=== PATIENT | female | born 1995 | race Caucasian/White ===

== ENCOUNTER 2024-09-19 23:17 | Inpatient (IN) ==
[2024-09-19] MEDS ORDERED: OXYTOCIN 30 UNITS/NSS 30 UNITS/500 ML BAG IV PRN (23:30)
[2024-09-19] MEDS ORDERED: LIDOCAINE 1% LOCAL 20 ML VIAL INFIL PRN (23:30)
--- NOTE | 2024-09-19 23:32 | History & Physical Report ---
Date of Service September 19, 2024 Assessment & Plan (1) Post term over 40 weeks: (2) PROM (premature rupture of membranes): (3) Antibody E isoimmunization affecting , antepartum: Plan admit,iv, labs. gross srom. plan pitocin, pt agreeable. fhts categ 1. History of Present Illness Chief Complaint: leaking fluid since 10pm 09/19 Primary Care Provider: NO PCP 29yo at 40+wks ega presents with above cc. No ctx. No vb. +FM. Clear fluid leak. PNC c/b 1. 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 Elective Surgical History H/O breast biopsy right breast No pertinent past surgical history Family History Denies family history of Pancreatic cancer Ovarian cancer Prostate cancer Breast cancer Colorectal cancer Uterine cancer Social History (Updated 09/16/24 @ 16:19 by Rosa Elena Hernandez RN) Smoking Status: Never smoker Do You Dip or Chew Tobacco: No; Hx Alcohol Use: No Hx Substance Use: No Preferred Language: Nigerian Communication Ability: Effective Visual Impairment: No Limitations Beliefs That Will Affect Care: None marital status: marital status details: Archie (29) [phone] Current Living Situation: Spouse Current Living Situation Comment: lives with spouse and 1 dog current occupational status: employed current occupation: shipping [employer] Feels Safe at Home: Yes Review of Systems as per Subjective / HPI Physical Exam 2 Constitutional: WD/WN, vitals as above Respiratory: normal respiratory effort, lungs clear to auscultation Cardiovascular: Rate/Rhythm: regular rate and regular rhythm Gastrointestinal (Abdomen): soft gravid nt efw 7# Musculoskeletal: no edema nontender calves Neurologic: grossly normal Psychiatric: A+Ox3, euthymic affect Genitourinary: Manual OB Exam: + cervical dilation 3 cm, + cervical effacement 50%, + station -2 and + amniotic fluid (srom) clear OB Exam Monitor Tracing: + external FHT monitor used, + external uterine monitor used (no ctx), + category I and + normal FHT variability Coding Level of Care Code None Diagnoses Post term over 40 weeks O48.0 PROM (premature rupture of membranes) O42.90 Antibody E isoimmunization affecting , antepartum O36.0990
[2024-09-19 23:54] LABS: Hematocrit (blood only) 34.5 % (37.0-47.0); Hemoglobin 11.9 g/dl (12.0-16.0); Mean Corpuscular Hemoglobin 29.8 pg (25.0-34.0); Mean Corpuscular Hgb Conc 34.5 g/dL (32.0-36.0); Mean Corpuscular Volume 86.5 fL (80.0-100.0); Mean Platelet Volume 10.5 fL (9.4-12.4); Platelet Count 177 K/uL (130-400); RDW Coefficient of Variation 12.9 % (11.5-14.5); RDW Standard Deviation 40.5 fL (36.4-46.3); Red Blood Count 3.99 M/uL (4.20-5.40); White Blood Count 8.29 K/ul (4.8-10.8)
[2024-09-20] MEDS: SODIUM CHLORIDE 0.9% 1,000 ML IV SCH (00:20)
[2024-09-20] MEDS: OXYTOCIN 30 UNITS/NSS 30 UNITS/500 ML BAG IV PRN (00:22)
[2024-09-20] MEDS ORDERED: fentaNYL citrate PF 100 MCG/2 ML VIAL EPI PRN (03:50)
[2024-09-20] MEDS ORDERED: NALOXONE HCL 1 MG in SODIUM CHLORIDE 0.9% 1,000 ML IV PRN (03:50)
[2024-09-20] MEDS ORDERED: ePHEDrine sulfate 50 MG/ML AMP IV PRN (03:50)
[2024-09-20] MEDS ORDERED: diphenhydrAMINE 50 MG/ML VIAL IV PRN (03:50)
[2024-09-20] MEDS ORDERED: SODIUM CHLORIDE 0.9% PF INJ 10 ML VIAL EPI PRN (03:50)
[2024-09-20] MEDS ORDERED: ROPIVACAINE 0.5% PF 5 MG/ML 20 ML VIAL EPI PRN (03:50)
[2024-09-20] MEDS ORDERED: NALBUPHINE HCL INJ 10 MG/ML AMP IV PRN (03:50)
[2024-09-20] MEDS ORDERED: LIDOCAINE 2% MPF LOCAL 5 ML VIAL EPI PRN (03:50)
[2024-09-20] MEDS ORDERED: BUPIVACAINE 0.25% PF 30 ML VIAL EPI PRN (03:50)
[2024-09-20] MEDS ORDERED: NALOXONE HCL 0.4 MG/1 ML VIAL/CARP IV PRN (03:50)
--- NOTE | 2024-09-20 03:50 | Anesthesiology Consultation ---
Date of Service September 20, 2024 Assessment & Plan (1) Encounter for pre-operative examination: Chart Review Chart Review: Patient NOT seen in Pre Admission Testing and Acceptable Risk for Labor Epidural Consults Requested none History Height/Weight Height: 5 ft 5 in Weight: 79.832 kg Allergies Allergy/AdvReac Type Severity Reaction Status Date / Time Penicillins Allergy Unknown unk Verified 09/19/24 23:34 Medications Home Medications Medication Instructions Recorded Confirmed Last Taken prenat.vits,ronda,[id number] 1 tab PO DAILY 01/30/24 09/19/24 09/19/24 Active Medications Generic Name Dose Route Start Last Admin Trade Name Freq PRN Reason Stop Dose Admin Oxytocin 30 units in 500 mls @ 5 mls/hr 09/19/24 23:30 09/20/24 02:30 Pitocin 30 Units/Nss IV 09/21/24 23:29 0.3 units/hr .Q24H PRN 5 mls/hr Labor Induction/Augmentation Titration Protocol 0.3 UNITS/HR Sodium Chloride 1,000 mls @ 50 mls/hr 09/20/24 00:15 09/20/24 03:20 Nss IV 09/21/24 00:14 999 mls/hr .Q20H MILAN Infusion Past Medical History Medical History History of COVID-19 08/07/2024 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
[2024-09-20] MEDS: LIDOCAINE 2%/EPINEPHRINE 1:200,000 20 ML PF EPI STA (04:08)
[2024-09-20] MEDS: BUPIVACAINE 0.25% PF 30 ML VIAL EPI STA (04:09)
[2024-09-20] MEDS: fentaNYL citrate PF 100 MCG/2 ML VIAL EPI STA (04:09)
[2024-09-20] MEDS: fentANYL 2 MCG/ML BUPIVacaine 0.125%-NSS 100ML BAG EPI PRN (04:11)
[2024-09-20] MEDS: fentANYL 2 MCG/ML BUPIVacaine 0.125%-NSS 100ML BAG ONE (04:17)
[2024-09-20] MEDS: LIDOCAINE 2%/EPINEPHRINE 1:200,000 20 ML PF ONE (04:17)
[2024-09-20] MEDS: SODIUM CHLORIDE 0.9% PF INJ 10 ML VIAL ONE (04:17)
[2024-09-20] MEDS: BUPIVACAINE 0.25% PF 30 ML VIAL ONE (04:17)
[2024-09-20] MEDS: fentaNYL citrate PF 100 MCG/2 ML VIAL ONE (04:17)
[2024-09-20] MEDS: ePHEDrine sulfate 50 MG/ML AMP ONE (04:17)
[2024-09-20] MEDS: SODIUM CHLORIDE 0.9% PF INJ 10 ML VIAL EPI STA (04:18)
--- NOTE | 2024-09-20 07:44 | Labor Progress Brief Note ---
Date of Service September 20, 2024 Subjective feels pressure Assessment & Plan (1) Post term over 40 weeks: (2) PROM (premature rupture of membranes): Plan begin 2nd stage. fhts categ 1. Admission and Anticipated Discharge Date Admission Date: September 19, 2024 Physical Exam Constitutional: WD/WN, vitals as above Genitourinary: Manual OB Exam: + cervical dilation 10 cm, + cervical effacement 100% and + station + 2 OB Exam Monitor Tracing: + external FHT monitor used, + external uterine monitor used, + category I and + normal FHT variability Results & Data Vital Signs (Past 12 Hours) Vital Signs Temp Pulse Resp BP Pulse Ox 09/20/24 07:40 68 09/20/24 07:40 72 126/68 100 09/20/24 07:35 63 98 09/20/24 07:30 64 16 97 09/20/24 07:25 61 99 09/20/24 07:24 56 L 119/69 09/20/24 07:20 63 99 09/20/24 07:15 52 L 99 09/20/24 07:10 63 118/75 98 09/20/24 07:09 60 87 L 09/20/24 07:07 98.4 F 67 20 100 09/20/24 07:05 67 100 09/20/24 07:00 61 92 09/20/24 06:55 63 122/73 100 09/20/24 06:54 63 94 09/20/24 06:50 61 100 09/20/24 06:45 65 100 09/20/24 06:40 63 107/62 100 09/20/24 06:36 62 91 09/20/24 06:35 64 100 09/20/24 06:30 68 99 09/20/24 06:28 71 90 09/20/24 06:25 97.9 F 71 18 124/85 100 09/20/24 06:20 69 99 09/20/24 06:15 59 L 97 09/20/24 06:10 63 104/65 100 09/20/24 06:05 53 L 97 09/20/24 06:00 59 L 97 09/20/24 05:55 97 09/20/24 05:55 57 L 09/20/24 05:55 37 L 98/53 L 09/20/24 05:50 57 L 97 09/20/24 05:45 61 98 09/20/24 05:40 64 99 09/20/24 05:39 68 113/68 09/20/24 05:35 54 L 97 09/20/24 05:30 66 99 09/20/24 05:25 99 09/20/24 05:25 63 09/20/24 05:25 73 120/73 09/20/24 05:20 55 L 98 09/20/24 05:15 64 98 09/20/24 05:10 63 114/67 98 09/20/24 05:05 61 100 09/20/24 05:01 64 90 09/20/24 05:00 72 100 09/20/24 04:55 77 100 09/20/24 04:54 69 127/69 09/20/24 04:50 75 100 09/20/24 04:45 68 100 09/20/24 04:40 69 99 09/20/24 04:39 65 107/56 L 09/20/24 04:35 61 97 09/20/24 04:30 57 L 99 09/20/24 04:29 16 09/20/24 04:29 16 09/20/24 04:25 72 95 09/20/24 04:23 67 107/54 L 09/20/24 04:20 66 98 09/20/24 04:16 71 107/59 L 09/20/24 04:15 98.2 F 62 16 99 09/20/24 04:14 71 103/55 L 09/20/24 04:12 73 102/59 L 87 L 09/20/24 04:10 62 111/61 99 09/20/24 04:06 68 115/61 09/20/24 04:05 67 99 09/20/24 04:03 99 H 91 09/20/24 04:00 73 98 09/20/24 03:55 70 97 09/20/24 03:50 72 97 09/20/24 03:45 64 99 09/20/24 03:40 65 100 09/20/24 03:30 16 09/20/24 03:30 16 09/20/24 03:29 58 L 122/75 09/20/24 03:00 16 09/20/24 03:00 16 09/20/24 02:29 97.5 F L 74 16 118/73 09/20/24 01:28 59 L 107/69 09/20/24 00:39 18 09/20/24 00:39 97.7 F 18 09/20/24 00:28 72 110/72 09/19/24 23:36 98.1 F 09/19/24 23:32 69 126/84 Coding Level of Care Code None Diagnoses Post term over 40 weeks O48.0 PROM (premature rupture of membranes) O42.90
[2024-09-20] MEDS ORDERED: bisacodyL 10 MG SUPP PR PRN (08:17)
[2024-09-20] MEDS ORDERED: ACETAMINOPHEN 325 MG TAB PO PRN (08:17)
[2024-09-20] MEDS ORDERED: OXYTOCIN 30 UNITS/NSS 30 UNITS/500 ML BAG IV PRN (08:17)
[2024-09-20] MEDS ORDERED: HYDROCORTISONE ACETATE 25 MG SUPP PR PRN (08:17)
[2024-09-20] MEDS ORDERED: DIPHTHER/TETAN/PERTUS Vaccine (Tdap, Adol/Adult) 0.5mL IM ONE (08:17)
[2024-09-20] MEDS ORDERED: oxyCODONE/ACETAMINOPHEN 5mg/325mg TAB PO PRN (08:17)
--- NOTE | 2024-09-20 08:26 | Delivery Summary ---
Vaginal Delivery Summary Date of Service September 20, 2024 Vaginal Delivery Summary and 2nd Degree LAC The patient dilated to complete and pushed to deliver a viable Female Apgars 8 and 9 via over 2nd degree perineal laceration. Mouth and nose bulb suctioned at perineum. Shoulders and body delivered with ease. was vigorous and crying at . Cord clamped at 30 seconds of life and to maternal abdomen where the cord was then doubly clamped and cut. Placenta delivered spontaneously and intact, three-vessel cord. Hemostasis achieved with dilute pitocin and uterine massage. Laceration repaired in layer in usual fashion with 3-0 vicryl. Cervix and sulci intact. QBL 287 cc. Mother and baby stable in recovery. [facility] Vaginal Delivery Charge Delivery Type Details: and 2nd Degree LAC
--- NOTE | 2024-09-20 09:24 | Anesthesia Procedure Note ---
Date of Service September 20, 2024 Anesthesia Post Epidural Note Vital Signs Vital Signs: Temp Pulse Resp BP Pulse Ox 36.9 C 60 18 103/59 L 94 09/20/24 07:07 09/20/24 09:08 09/20/24 08:53 09/20/24 09:08 09/20/24 08:20 Pain Intensity Left Abdomen: Pain Intensity: 3 Notes Mental Status: alert / awake / arousable and participated in evaluation Nausea / Vomiting: adequately controlled Pain: adequately controlled Airway Patency, RR, SpO2: stable & adequate BP & HR: stable & adequate Hydration State: stable & adequate Neuraxial Anesthesia: was administered and sensory block is resolving Anesthetic Complications: no major complications apparent and Pt Satisfied with anesthetic care Epidural: Removed without complications and With tip intact
[2024-09-20] MEDS: BENZOCAINE 20% SPRY 85 APPLN/85 GM CAN EXT PRN (09:58)
[2024-09-20] MEDS: IBUPROFEN 600 MG TAB PO PRN (09:58)
[2024-09-20] MEDS: DOCUSATE SODIUM 100 MG CAP PO SCH (20:15)
[2024-09-21 06:41] LABS: Hematocrit (blood only) 32.9 % (37.0-47.0); Hemoglobin 10.9 g/dl (12.0-16.0); Mean Corpuscular Hemoglobin 29.1 pg (25.0-34.0); Mean Corpuscular Hgb Conc 33.1 g/dL (32.0-36.0); Mean Platelet Volume 10.7 fL (9.4-12.4); Platelet Count 183 K/uL (130-400); RDW Standard Deviation 41.4 fL (36.4-46.3); Red Blood Count 3.74 M/uL (4.20-5.40); White Blood Count 10.61 K/ul (4.8-10.8)
--- NOTE | 2024-09-21 08:09 | Obstetrical Progress Note ---
Date of Service September 21, 2024 Assessment & Plan (1) Normal spontaneous vaginal delivery: Plan Both mom and baby doing well. Discharge today if they feel ready to go home. Admission and Anticipated Discharge Date Admission Date: September 19, 2024 Supervising Physician Co-Signing Physician Notes Patient seen with resident and agree with the above findings and plan. Stable for discharge at 24 hours if preferred Subjective #1PPD following at 40 WGA No active complains Both mom and baby doing well. Pain: Mild, intermittent Lochia: Moderate Diet: Regular Ob diet Gas: Aware of passing, no abdominal distension Peeing: Normal, no bladder distension Ambulation: Normally Review of Systems Review of Systems: No SOB, chest pain, leg pain No dizziness, headache, palpitation No Blurring of vision , fever Physical Exam Physical Exam: General: Alert and oriented. No acute distress. CVS: S1 S2+ No murmurs, regular rhythm. Respiratory: CTA bilaterally. No rhonchi, wheezes, or crackles. No increased work of breathing. Abdomen: Bowel sound +. Soft, nontender Uterus: Fundus firm and palpable few cm below the umbilicus. Lower extremities: No LE edema. No deep calf pain. Results & Data Vital Signs (Past 12 Hours) Vital Signs Temp Pulse Resp BP Pulse Ox O2 Del Method 09/21/24 04:15 36.6 C 74 18 116/76 98 Room Air 09/20/24 23:50 36.6 C 58 L 18 116/74 97 Room Air 09/20/24 20:15 36.4 C L 67 18 115/74 96 Room Air
[2024-09-21] MEDS: PRENATAL VITAMIN 1 TAB PO SCH (08:47)
[2024-09-21] MEDS: bisacodyL 5 MG TABEC PO SCH (20:25)
[2024-09-21 21:46] VITALS: O2SAT 97
[2024-09-22 01:46] VITALS: RESP 16
[2024-09-22 07:24] LABS: Hematocrit (blood only) 35.6 % (37.0-47.0); Hemoglobin 11.8 g/dl (12.0-16.0)
[2024-09-22 07:27] VITALS: BP 112/72; PULSE 63; TEMP 97.7
--- NOTE | 2024-09-22 07:28 | Obstetrical Progress Note ---
Date of Service September 22, 2024 Assessment & Plan (1) Encounter for care and examination after delivery: satisfactory progress will discharge to home follow up in 6 weeks Subjective Ambulation: ambulating normally Voiding: no voiding problems Passing Gas:: Yes Diet Tolerance:: regular diet Lochia:: Small Feeding Type:: breast feeding some cramping but relieved with ibuprofen Review of Systems All systems reviewed & are unremarkable except as noted in HPI & below Physical Exam Constitutional WD/WN, vitals as above Psychiatric A+Ox3, euthymic affect Genitourinary OB Exam Abdomen: + fundal height Fundus: + firm and + relation to umbilicus (2 below ) Results & Data Vital Signs (Past 12 Hours) Vital Signs Temp Pulse Resp BP Pulse Ox O2 Del Method 09/22/24 00:15 98.1 F 70 16 119/75 97 Room Air 09/21/24 20:15 97.7 F 71 18 115/69 97 Room Air
== END 2024-09-22 11:40 | disposition home or self-care (01) | DRG 807 ==
LOC: OPB 23:17 → 4S1 23:19 → 4E2 09-20 11:03